=== PATIENT | male | born 1980 | race Caucasian/White ===

== ENCOUNTER 2017-03-04 19:35 | Emergency (ER) | payer MEDICAID ==
[~2017-03-04 19:35] MED LIST: AZITHROMYCIN250 M1 PO; CARVEDILOL25 M1 PO; CLARITIN10 M2 PO; CLARITIN10 M6 PO; DICYCLOMINE HCL20 M1 PO; FLUOXETINE HCL10 MG PO; FLUOXETINE HCL20 MG PO; FLUOXETINE HCL40 M1 PO; FLUOXETINE PO; LISINOPRIL20 M1 PO; MELATONIN3 M4 PO; METOPROLOL PO; METOPROLOL TART50 MG PO; MONTELUKAST SOD10 M2 PO; NORVASC10 M2 PO; NORVASC10 MG PO; OMEPRAZOLE20 M4 PO; PROMETHAZINE HC25 M3 PO; PROVENTIL HFA6.7 G1 INH; QUETIAPINE FUMA50 M1 PO; TAMIFLU75 MG/CAP NG; ZOFRAN4 M1 PO; ZOFRAN4 M2 PO
[2017-03-04] MEDS ORDERED: ZYRTEC10 M7 PO (19:52)
[2017-03-04 20:37] LABS: BASO % 0.3 % (0-2); EOSINOPHIL ABSOLUTE COUNT 0.2 tho/cmm (0.0-0.7); HCT-HEMATOCRIT 49.8 % (36.0-53.5); HGB-HEMOGLOBIN 17.6 gm/dl (13.5-17.0); IMMATURE GRANULOCYTES ABSOLUTE 0.01 tho/cmm (0-0.03); IMMATURE GRANULOCYTES PERCENT 0.1 % (0-0.3); LYMPH % 20.6 % (20-45); LYMPH ABSOLUTE COUNT 1.4 tho/cmm (0.8-4.5); MCH (MEAN CORPUSCULAR HGB) 34.4 pg (28.0-32.0); MCHC MEAN CORPUSCULAR HGB CONC 35.3 % (32.0-36.0); MCV (MEAN CELL VOLUME) 97.3 fl (82.0-96.0); MONO % 10.4 % (0-12); MONOCYTE ABSOLUTE COUNT 0.7 tho/cmm (0.0-1.2); NEUTROPHIL ABSOLUTE COUNT 4.6 tho/cmm (1.6-8.0); NEUTROPHIL-AUTOMATED 4.6 tho/cmm (1.6-8.0); NEUTROPHILS % 65.6 % (40-80); PLATELET COUNT 186 tho/cmm (150-450); RED BLOOD COUNT 5.12 mil/cmm (4.40-5.70); RED CELL DISTRIBUTION WIDTH 11.8 % (12.4-16.4)
[2017-03-04 20:42] LABS: INR 0.9 INR (0.9-1.1)
[2017-03-04 20:55] LABS: ALB/GLOB RATIO 1.1 (0.8-2.0); ALBUMIN 3.9 g/dl (3.5-5.0); ALCOHOL (ETOH) <10 mg/dl (<10); ALKALINE PHOSPHATASE 75 U/L (33-138); ALT/SGPT 55 U/L (12-78); ANION GAP 13 mmol/L (0-20); AST/SGOT 32 U/L (10-40); BILIRUBIN,TOTAL 0.5 mg/dl (0.0-1.5); BLOOD UREA NITROGEN 28 mg/dl (6-24); CALCIUM 8.9 mg/dl (8.5-10.5); CARBON DIOXIDE-VENOUS 25 mmol/L (22-32); CHLORIDE 108 mmol/l (96-110); CKMB 4.3 ng/ml (<3.6); CREATININE 1.47 mg/dl (0.60-1.30); GLUCOSE 94 mg/dL (70-110); POTASSIUM 4.4 mmol/L (3.7-5.1); SODIUM 142 mmol/L (135-145); eGFR VALUE FOR BLACK 71 mL/Min
[2017-03-04 21:02] LABS: CREATINE PHOSPHOKINASE (CPK) 260 U/L (35-232)
[2017-03-04 21:06] LABS: URINE BILIRUBIN NEGATIVE (NEG); URINE BLOOD NEGATIVE (NEG); URINE GLUCOSE (UA) NEGATIVE (NEG); URINE KETONE NEGATIVE (NEG); URINE LEUKOCYTE ESTERASE POSITIVE (NEG); URINE NITRITE NEGATIVE (NEG); URINE PROTEIN NEGATIVE (NEG)
[2017-03-04 21:07] LABS: URINE APPEARANCE CLEAR; URINE COLOR PALE YELLOW
[2017-03-04 21:16] LABS: URINE WBC 0-1 /[HPF] (0-5)
== END 2017-03-04 22:56 ==
LOC: EDMED 19:35
PROVIDERS: Emergency Medicine
DX: R55 Syncope and collapse (principal); F20.9 Schizophrenia, unspecified; F84.0 Autistic disorder; Z72.0 Tobacco use; Z79.899 Other long term (current) drug therapy; Z98.890 Other specified postprocedural states
CPT/HCPCS: G0480; J7030